=== PATIENT | female | born 1960 | race Caucasian/White ===

== ENCOUNTER 2018-04-28 17:13 | Emergency (ER) | payer SELFPAY ==
[~2018-04-28] VITALS: Ht 167.6 cm; Wt 98.9 kg
[~2018-04-28 17:13] MED LIST: GLIP10TA14; IBUP-1544; LISI10TA2; MTF1000T; PIOG15TA12
[2018-04-28 17:19] VITALS: BP 134/62; PULSE 86; RESP 20; Ht 167.6 cm; Wt 98.9 kg
== END 2018-04-29 00:45 | disposition left against medical advice (07) ==
LOC: FTE 17:13
DX: Z53.21 Procedure and treatment not carried out due to patient leaving prior to being seen by health care provider (principal)